=== PATIENT | female | born 1945 | race Caucasian/White ===

== ENCOUNTER 2016-09-13 05:21 | Inpatient (IN) | payer OTHER ==
[2016-08-19 10:47] VITALS: BMI 26.0
--- NOTE | 2016-08-19 11:18 | PAT Medication Instructions ---
Service Date Aug 19, 2016. Current Home Medication List Acetaminophen (Tylenol), 1,000 MG PO PRN B-Complex Vitamins (Vitamin B Complex), 1 TAB PO Q2D Calcium Carbonate-Vitamin D (Calcium + D), 1 TAB PO BID Mujewgeo-Rumxugqkpgx-Uhyfetwoq (Hyaluronic Acid), 33 MG PO QAM Famotidine (Pepcid), 20 MG PO QAM Fexofenadine-Pseudoephedrine (Kareen-D 24 Hour Allergy), 1 TAB PO PRN Fish Oil (Alder-3), 1 CAP PO Q2D Figdxnyhder-Lmwkgoofend-Ivr C- (Glucosamine Chondroitin), 1 TAB PO QAM Lutein (Lutein), 20 MG PO QAM Milk Thistle (Silybum Marianum (Milk Thistle), 500 MG PO QAM Multivitamins/Minerals (Mvi With Minerals), 1 TAB PO Q2D [Magnesium Citrate], 225 MG PO Q2D Medication Instructions For Your Scheduled Surgery - Hold the following medications 7-10 days prior to surgery: Milk Thistle (Silybum Marianum (Milk Thistle), 500 MG PO QAM Fish Oil (Alder-3), 1 CAP PO Q2D Kwtczqzbsim-Kaykfkuzwip-Vpj C- (Glucosamine Chondroitin), 1 TAB PO QAM Lutein (Lutein), 20 MG PO QAM Zmzweajk-Iyqgqndpngn-Bbhvgpxlv (Hyaluronic Acid), 33 MG PO QAM - Hold the following medications the morning of surgery: Multivitamins/Minerals (Mvi With Minerals), 1 TAB PO Q2D Magnesium Citrate 225 MG PO Q2D B-Complex Vitamins (Vitamin B Complex), 1 TAB PO Q2D Calcium Carbonate-Vitamin D (Calcium + D), 1 TAB PO BID Fexofenadine-Pseudoephedrine (Kareen-D 24 Hour Allergy), 1 TAB PO PRN - Take the following medications the morning of surgery with a sip of water: Acetaminophen (Tylenol), 1,000 MG PO PRN (if needed) Famotidine (Pepcid), 20 MG PO QAM - Take the following medications as scheduled the night before surgery: Fexofenadine-Pseudoephedrine (Kareen-D 24 Hour Allergy), 1 TAB PO PRN Acetaminophen (Tylenol), 1,000 MG PO PRN (if needed) If you have any questions please call us at [phone] or [phone] ( Yahaira) or [phone]
[2016-08-19 12:12] LABS: BASO % 0.2 %; BASO ABS # 0.01 K/uL (0-0.2); COMPLETE YES; EOS % 1.8 %; HEMATOCRIT 40.5 % (37-47); IG% 0.2 %; LYMPH % 26.2 %; LYMPH ABS # 1.32 K/uL (1.2-3.4); MEAN CORPUSCULAR HEMOGLOBIN 30.5 pg (25-34); MEAN CORPUSCULAR HGB CONC 33.1 g/dl (32-36); MEAN PLATELET VOLUME 9.7 fL (7.4-10.4); MONO % 7.1 %; NEUT % 64.5 %; PLATELET COUNT 242 K/uL (130-400); WHITE BLOOD COUNT 5.04 K/uL (4.8-10.8)
[2016-08-19 12:20] LABS: PARTIAL THROMBOPLASTIN RATIO 1.1; PROTHROMBIN TIME (PATIENT) 10.6 SECONDS (9.0-12.0)
[2016-08-19 12:29] LABS: URINE APPEARANCE CLEAR (CLEAR); URINE BILIRUBIN NEG (NEG); URINE COLOR DK YELLOW; URINE NITRITE NEG (NEG); UROBILINOGEN NEG (NEG); ZZUR CULT IF INDIC CLEAN CATCH NO
[2016-08-19 12:39] LABS: MANUAL MICROSCOPIC REQUIRED? NO; REVIEW REQ? NO
[2016-08-19 12:42] LABS: BUN/CREATININE RATIO 24.9 (10-20); CALCIUM 9.6 mg/dl (8.5-10.1); CREATININE 0.59 mg/dl (0.60-1.20); POTASSIUM 4.2 mmol/L (3.5-5.1)
--- NOTE | 2016-09-10 10:53 | HISTORY & PHYSICAL EXAMINATION ---
DATE OF ADMISSION: 09/13/2016 CHIEF COMPLAINT: Right knee pain. HISTORY OF PRESENT ILLNESS: Patsy is a 70-year-old female with a 4- to 5-year history of pain in her right knee. The patient rates her pain an 8/10. She has pain with her daily activities. She has limited standing and walking tolerance. Pain is worse with weightbearing. The patient has had injections, Tylenol and home exercise program without relief. She has failed conservative treatment and is scheduled for right knee replacement. PAST MEDICAL HISTORY: Osteoarthritis, GERD. She denies heart disease, diabetes or DVT. PAST SURGICAL HISTORY: Tonsillectomy, D\T\C, appendectomy, cataract extraction. SOCIAL HISTORY: The patient drinks 4 drinks per week. She denies tobacco use. She lives in a single cristi home. She is and retired. FAMILY HISTORY: Negative for DVT. MEDICATIONS: Pepcid 20 mg daily, Kareen 180 mg daily, Lutein 20 mg, hyaluronic acid 33 mg, calcium plus D, glucosamine chondroitin, milk thistle, vitamin B complex, vitamin D3, mag citrate, and a multivitamin. ALLERGIES: ASPIRIN, ALEVE, IBUPROFEN. REVIEW OF SYSTEMS: See HPI. Ten other systems reviewed, all negative. PHYSICAL EXAMINATION: VITAL SIGNS: Height 5 foot 6 inches, weight 164 pounds, BMI is 27. GENERAL: This is a well-developed, well-nourished female who is alert and oriented x3. Mood and affect are appropriate. HEENT: Normocephalic, atraumatic. Mucous membranes are moist and intact. NECK: Supple without lymphadenopathy. HEART: Regular rate and rhythm without murmurs, rubs or gallops. LUNGS: Clear to auscultation without wheezes or rhonchi. ABDOMEN: Soft and nontender. Bowel sounds are equal and active. EXTREMITIES: No ecchymosis, redness or warmth. Thigh and calf are soft and nontender. She has a valgus deformity. Range of motion is from 0-120 degrees with +3 laxity. She is neurovascularly intact with +5/5 strength. X-RAY EXAMINATION: AP and lateral views show joint space narrowing and osteophyte formation. IMPRESSION: Degenerative joint disease, right knee. PLAN: The patient will be admitted for a right total knee arthroplasty. We will consider aspirin for DVT prophylaxis, but due to her allergy may go with Xarelto or Lovenox. She will have [facility] for home physical therapy.
[2016-09-13] VITALS (9 sets, daily range): BP systolic 96–121; BP diastolic 63–92; PULSE 56–87; TEMP 36.4–36.6; O2SAT 94–99; Ht 167.6 cm; Wt 75.1 kg
[~2016-09-13] VITALS: Ht 167.6 cm; Wt 75.1 kg
[~2016-09-13 05:21] MED LIST: ACET-1256 PO; B-COTAB18 PO; CALC600T9 PO; COLL1CAP PO; FAMO20TA11 PO; FEXO1TAB58 PO; GLUCTAB7 PO; LUTE20CA PO; MAGNSOL13 PO; MILK1CAP PO; MULT-513 PO; OMEG10007 PO
[2016-09-13] MEDS ORDERED: ROPIVACAINE 5MG/ML 30 ML 150 MG, BUPIVACAINE/EPINEPHR 0.5% MPF 30 ML, KETOROLAC TROMETH... INFIL SCH ×14 (06:00)
[2016-09-13] MEDS ORDERED: ACETAMINOPHEN 500 MG TAB PO SCH (06:00)
[2016-09-13] MEDS ORDERED: GABAPENTIN 300 MG CAP PO SCH (06:00)
[2016-09-13] MEDS ORDERED: CEFAZOLIN 2000 MG/60 ML D5W 60 ML IV SCH (06:00)
[2016-09-13] MEDS ORDERED: LACTATED RINGER'S 1000ML 1,000 ML IV SCH (06:00)
[2016-09-13] MEDS ORDERED: METOCLOPRAMIDE HCL 10 MG TAB PO SCH (06:00)
[2016-09-13] MEDS ORDERED: CeleBREX 200 MG CAP PO SCH (06:00)
[2016-09-13] MEDS ORDERED: LACTATED RINGER'S 1000ML IV SCH (06:00)
[2016-09-13] MEDS ORDERED: LACTATED RINGER'S 1000ML 500 ML IV ONE (06:00)
[2016-09-13] MEDS ORDERED: POLYMYXIN B SULFATE 100,000 UNITS in NSS 100ML IR SCH (06:00)
[2016-09-13] MEDS ORDERED: DEXAMETHASONE 4 MG TAB PO SCH (06:00)
[2016-09-13] MEDS ORDERED: VANCOMYCIN INJ 400 MG in NSS 100ML IR SCH (06:00)
[2016-09-13] MEDS ORDERED: FAMOTIDINE 20 MG TAB PO SCH (06:00)
[2016-09-13] MEDS ORDERED: OXYCODONE HCL 10 MG TABCR (OXYCONTIN) PO SCH (06:00)
[2016-09-13] MEDS: TRANEXAMIC ACID INJ 1,000 MG in SODIUM CHLORIDE 0.9% 100ML 100 ML IV SCH ×2 (06:14→10:08)
[2016-09-13] MEDS ORDERED: BUPIVACAINE 0.25% 30 ML VIAL ONE (06:24)
[2016-09-13] MEDS ORDERED: BUPIVACAINE 0.5 % 5 MG/1 ML PF 10ML VIAL ONE (06:24)
[2016-09-13] MEDS ORDERED: PROPOFOL IV EMULSION 10 MG/ML 20 ML VIAL IV ONE (06:37)
[2016-09-13] MEDS ORDERED: LIDOCAINE HCL 2% 2 ML VIAL (20MG/ML) ONE (06:37)
[2016-09-13] MEDS ORDERED: MIDAZOLAM HCL 1 MG/ML 2ML VIAL ONE ×2 (06:37→07:55)
[2016-09-13] MEDS ORDERED: FENTANYL CITRATE INJ 50 MCG/1 ML 2 ML VIAL ONE (06:38)
[2016-09-13] MEDS ORDERED: BUPIVACAINE/EPINEPHRINE 0.25% 1:200,000 30 ML VIAL ONE (06:43)
[2016-09-13] MEDS ORDERED: ORTHO JOINT ANESTHETIC ONE ×2 (06:43→07:38)
[2016-09-13] MEDS ORDERED: POVIDONE-IODINE OP SOLN 30 ML BTL ONE (06:44)
[2016-09-13] MEDS ORDERED: BACITRACIN 50000 UNIT VIAL ONE (06:44)
--- NOTE | 2016-09-13 06:49 | History & Physical Bridge Note ---
H&P Re-Evaluation Bridge Note: I have examined the patient, reviewed the History & Physical and in the interval since the performance of the History & Physical I have noted the following changes of clinical significance: No changes noted
[2016-09-13] MEDS ORDERED: LACTATED RINGER'S 1000ML 1,000 ML IV PRN (07:09)
[2016-09-13] MEDS ORDERED: FENTANYL CITRATE INJ 50 MCG/1 ML 2 ML VIAL IV PRN (07:15)
[2016-09-13] MEDS ORDERED: ONDANSETRON INJ 2 MG/ML 2 ML VIAL IV PRN ×2 (07:15→08:15)
[2016-09-13] MEDS ORDERED: EpHEDrine SULFATE INJ 50 MG/ML AMP ONE (07:39)
--- NOTE | 2016-09-13 08:06 | [facility] Post Operative Brief Note ---
Immediate Operative Summary Operative Date Sep 13, 2016. Pre-Operative Diagnosis right knee degenerative joint disease Post-Operative Diagnosis right knee degenerative joint disease Procedure(s) Performed Right Total Knee Arthroplasty Surgeon Dr. Sivakumar Whitlock Commis Chef Surgeon(s) Eren Stinson PA-C Estimated Blood Loss 50ML Findings DJD Specimens A. Right Knee Bone and Tissue Complication(s) None Disposition Recovery Room / PACU
[2016-09-13] MEDS ORDERED: ALUMINUM/MAGNESIUM/SIMETH (MAALOX MAX) 30 ML UDC PO PRN (08:15)
[2016-09-13] MEDS ORDERED: MoRPHine SULFATE 2 MG/ML CARP IV PRN (08:15)
[2016-09-13] MEDS ORDERED: MAGNESIUM HYDROXIDE SUSP 30 ML UDC PO PRN (08:15)
[2016-09-13] MEDS ORDERED: BISACODYL 10 MG SUPP PR PRN (08:15)
[2016-09-13] MEDS ORDERED: SOD PHOSPHATE/SOD BIPHOSPHATE ENEMA 132 ML BTL PR PRN (08:15)
[2016-09-13] MEDS ORDERED: ZOLPIDEM TARTRATE 5 MG TAB PO PRN (08:15)
[2016-09-13] MEDS ORDERED: DiphenhydrAMINE HCL 50 MG/ML VIAL IV PRN (08:15)
[2016-09-13] MEDS ORDERED: METOCLOPRAMIDE HCL INJ 5 MG/ML 2 ML VIAL IV PRN (08:15)
--- NOTE | 2016-09-13 09:10 | DIAGNOSTIC IMAGING REPORT ---
RIGHT KNEE 1 OR 2 VIEWS ROUTINE CLINICAL HISTORY: Postop knee arthroplasty COMPARISON: None. DISCUSSION: There are postsurgical changes of a total right knee arthroplasty and patellar resurfacing. Overlying surgical drains are evident. The femoral and tibial components appear well seated. There is air within soft tissues consistent with recent surgery. IMPRESSION: Postsurgical changes of a total right knee arthroplasty. Electronically signed by: Herb Huff M.D. 09/13/2016 9:08 AM Dictated Date/Time: 09/13/2016 9:07 AM
--- NOTE | 2016-09-13 09:21 | Anesthesiology Progress Note ---
Anesthesia Post Op Note Date & Time Sep 13, 2016 at 09:20 Vital Signs Pain Intensity: 0 Vital Signs Past 12 Hours Date Time Temp Pulse Resp B/P Pulse Ox O2 Delivery O2 Flow Rate FiO2 09/13/16 09:00 61 16 95/73 100 Mask 10 09/13/16 08:50 60 16 104/61 99 Mask 10 09/13/16 08:43 36.1 74 16 100/59 99 Mask 10 09/13/16 05:43 36.5 74 18 121/92 97 Room Air Notes Mental Status: alert / awake / arousable, participated in evaluation Pt Amnestic to Procedure: No (recall as expected) Nausea / Vomiting: adequately controlled Pain: adequately controlled Airway Patency, RR, SpO2: stable & adequate BP & HR: stable & adequate Hydration State: stable & adequate Neuraxial Anesthesia: was administered, sensory block is resolving Anesthetic Complications: no major complications apparent Pt doing well.
[2016-09-13] MEDS: [UNRECOGNIZED DRUG - REMARK] SCH (10:08)
[2016-09-13] MEDS: MULTIVITAMIN TAB PO SCH (11:45)
[2016-09-13] MEDS: D5W AND 1/2NSS + 20MEQ KCL 1,000 ML IV SCH ×2 (11:58→22:17)
[2016-09-13] MEDS: OXYCODONE HCL IR 5 MG TAB (IMMEDIATE RELEASE) PO PRN (12:57)
[2016-09-13] MEDS: CEFAZOLIN IV 1,000 MG in DEXTROSE 5% 50ML 50 ML IV SCH ×2 (14:03→22:17)
[2016-09-13] MEDS: ACETAMINOPHEN 500 MG TAB PO SCH ×2 (14:03→22:18)
--- NOTE | 2016-09-13 15:16 | OPERATIVE REPORT ---
DATE OF OPERATION: 09/13/2016 PREOPERATIVE DIAGNOSIS: Degenerative arthritis, right knee. POSTOPERATIVE DIAGNOSIS: Same. PROCEDURE: Right total knee patient matched implant. SURGEON: Dr. Sivakumar Whitlock. FUR SEWER: ROBY Johnson. ANESTHESIA: Spinal. ESTIMATED BLOOD LOSS: 50 mL. REPLACEMENT FLUIDS: 1500 mL crystalloid. DRAINS: Hemovac x2. CULTURES: None. COMPLICATIONS: None. COMPONENTS USED: Bhardwaj and NephPoplar Level Player's Plazaadrian Knee System: Femur size 5, tibia size 3 x 12, and patella size 32. NOTE: Eren Stinson was present and assisted throughout due to the complicated nature of this case. He helped with preparation and setup, first assisted throughout and personally closed the capsule, subcutaneous and skin layers and applied the postoperative dressing. DESCRIPTION OF PROCEDURE: Following satisfactory spinal, the patient was supine. A tourniquet was placed, but not inflated. The lower extremity was prepared with ChloraPrep and draped sterilely. Following a surgical timeout, a median parapatellar arthrotomy was performed. The knee showed grade 4 changes, especially in the lateral and patellofemoral compartments. The cruciate ligaments were excised. The patient matched femoral block was applied. Femoral distal rotation and resection were set and completed. The 4-in-1 block was used to finish preparation of the femur. The patient matched tibial block was applied. Tibial resection was completed. Patella was freehand cut. Soft tissue balancing was completed and a trial reduction showed good tensioning and stability on the collateral ligaments, stable range of motion, and the patella tracked well. The trial components were removed. The capsule was prepared with the orthopedic cocktail and after irrigation, the components were cemented using Simplex G cement. A Betadine soak was performed. When the cement had hardened, the Betadine was irrigated. Two drains were placed. The arthrotomy was closed with a running suture of 0 V-Loc, subcutaneous tissues with 2-0 Vicryl and the skin with a running subcuticular stitch of 3-0 V-Loc. Dermabond and a dry dressing were applied. The patient was returned to her bed in stable condition. I attest to the content of the Intraoperative Record and any orders documented therein. Any exceptio ns are noted below.
[2016-09-13] MEDS: TRAMADOL HCL 50 MG TAB PO PRN (15:44)
[2016-09-13] MEDS ORDERED: WARFARIN SOD 5 MG TAB PO ONE (16:00)
[2016-09-13] MEDS ORDERED: SENNA 8.6 MG TAB PO SCH (21:00)
[2016-09-13] MEDS: OXYCODONE HCL 10 MG TABCR (OXYCONTIN) PO SCH (21:10)
[2016-09-14] MEDS: OXYCODONE HCL IR 5 MG TAB (IMMEDIATE RELEASE) PO PRN ×3 (00:25→15:38)
[2016-09-14 03:29] VITALS: BP 101/62; PULSE 58; TEMP 36.5; O2SAT 95
[2016-09-14] MEDS: ACETAMINOPHEN 500 MG TAB PO SCH ×2 (05:42→13:34)
[2016-09-14 06:21] LABS: HEMATOCRIT 32.8 % (37-47); MEAN CELL VOLUME 93.2 fL (80-100); MEAN CORPUSCULAR HEMOGLOBIN 31.5 pg (25-34); MEAN CORPUSCULAR HGB CONC 33.8 g/dl (32-36); MEAN PLATELET VOLUME 9.5 fL (7.4-10.4); PLATELET COUNT 217 K/uL (130-400); RED BLOOD COUNT 3.52 M/uL (4.2-5.4); WHITE BLOOD COUNT 11.24 K/uL (4.8-10.8)
[2016-09-14 06:47] LABS: PROTHROMBIN TIME (PATIENT) 10.6 SECONDS (9.0-12.0)
[2016-09-14 07:01] LABS: BUN/CREATININE RATIO 14.2 (10-20); CALCIUM 8.4 mg/dl (8.5-10.1); CREATININE 0.66 mg/dl (0.60-1.20); POTASSIUM 4.5 mmol/L (3.5-5.1)
[2016-09-14 07:29] VITALS: BP 117/76; PULSE 65; TEMP 36.4; O2SAT 95
[2016-09-14] MEDS: D5W AND 1/2NSS + 20MEQ KCL 1,000 ML IV SCH (08:00)
[2016-09-14] MEDS: MULTIVITAMIN TAB PO SCH (08:26)
[2016-09-14] MEDS: OXYCODONE HCL 10 MG TABCR (OXYCONTIN) PO SCH (08:27)
--- NOTE | 2016-09-14 08:47 | Anesthesiology Progress Note ---
Anesthesia Post Op Note Date & Time Sep 14, 2016 at 08:46 Vital Signs Pain Intensity: 2.5 Vital Signs Past 12 Hours Date Time Temp Pulse Resp B/P Pulse Ox O2 Delivery O2 Flow Rate FiO2 09/14/16 07:29 36.4 65 16 117/76 95 Room Air 09/14/16 07:20 Room Air 09/14/16 03:29 36.5 58 16 101/62 95 Room Air 09/14/16 00:15 Room Air 09/13/16 22:48 36.4 56 16 109/66 96 Room Air Notes Mental Status: alert / awake / arousable, participated in evaluation Pt Amnestic to Procedure: Yes Nausea / Vomiting: adequately controlled Pain: adequately controlled Airway Patency, RR, SpO2: stable & adequate BP & HR: stable & adequate Hydration State: stable & adequate Neuraxial Anesthesia: sensory block resolved Anesthetic Complications: no major complications apparent
[2016-09-14] MEDS ORDERED: PANTOprazole SOD 40 MG TAB PO SCH (09:00)
--- NOTE | 2016-09-14 09:46 | Orthopedic Progress Note ---
Orthopedic Progress Note Date of Service Sep 14, 2016. Subjective Post OP Day: 1 Reports: feeling well, Denies: SOB, calf pain, chest pain, light headedness, nausea / vomiting Objective calves soft nontender, N/V intact, dressing C/D/I, A&O x3, toes mobile, hemovac drainage (225/75CC PER SHIFT) Date Time Temp Pulse Resp B/P Pulse Ox O2 Delivery O2 Flow Rate FiO2 09/14/16 07:29 36.4 65 16 117/76 95 Room Air 09/14/16 07:20 Room Air 09/14/16 03:29 36.5 58 16 101/62 95 Room Air 09/14/16 00:15 Room Air 09/13/16 22:48 36.4 56 16 109/66 96 Room Air 09/13/16 18:47 36.6 64 16 107/65 94 Room Air 09/13/16 15:25 Room Air 09/13/16 15:15 36.6 65 16 103/66 95 Room Air 09/13/16 12:45 36.4 70 18 111/77 99 Nasal Cannula 2.0 09/13/16 11:45 87 19 96/63 98 Nasal Cannula 2.0 09/13/16 10:45 36.4 62 16 105/71 98 2.0 09/13/16 10:14 36.4 70 16 113/79 98 2.0 Laboratory Results 24 Hours: Test 09/14/16 05:53 Hematocrit 32.8 % Hemoglobin 11.1 g/dL Prothromb Time International Ratio 1.0 Prothrombin Time 10.6 SECONDS Assessment & Plan Assessment: POD#1 SP RIGHT TKA Inhouse Planning Pain Management: Celebrex, Oxycontin, PO Tylenol, Oxy IR DVT Prophylaxis: TEDs, SCDs, Coumadin Discharge Planning Discharge Planning: home with home health (POSSIBLE DC LATER TODAY WITH [facility])
[2016-09-14] MEDS: TRAMADOL HCL 50 MG TAB PO PRN (10:47)
[2016-09-14 10:52] VITALS: BP 106/71; PULSE 66; TEMP 36.6; O2SAT 96
--- NOTE | 2016-09-14 12:03 | Discharge Instructions ---
Discharge Instructions Date of Service Sep 14, 2016. Admission Reason for Admission: Right Knee Degenerative Arthritis Discharge Discharge Diagnosis / Problem: sp right TKA Discharge Goals Goal(s): Decrease discomfort, Improve function, Increase independence Activity Recommendations Activity Limitations: per Instructions/Follow-up section . Instructions / Follow-Up Instructions / Follow-Up ACTIVITY RECOMMENDATIONS: SELF CARE INSTRUCTIONS AFTER TOTAL KNEE REPLACEMENT A. You may need to continue a physical therapy program after discharge from the hospital. There are several options available to you. Your doctor will assist you in selecting the best one for you. 1. An out-patient facility 2 to 3 times a week for therapy or home therapy. 2. Continue working on all exercises taught to you in the hospital. Your goals should be to increase bending of your knee to 90 degrees and beyond and to fully straighten your knee. B. You may progress at your own pace from walking with a walker or crutches to a cane; then to no assistive devices. C. Make walking a part of your daily routine. Be up as much as comfortable with rest periods throughout the day. Rest with leg elevation is very important. Use the ice wrap frequently for the first 3-4 weeks. D. There are no restrictions on activities. You may ride in a car, shop, participate in imaging engineer and all social activities. E. Wear the long elastic stockings (RADHA hose) 20 hours a day for 2 weeks after surgery. They can be removed several times a day for laundering and for a bath. F. You may shower, no tub baths until cleared by your doctor. SPECIAL CARE INSTRUCTIONS: VERY IMPORTANT TO READ AND REVIEW A. There are a few signs you need to watch for after you are home. Call [facility] if you notice any of the followin. Increased severe knee pain. Some pain is expected especially when you exercise. 2. Increased swelling in your leg or knee; pain or swelling of the calf muscle in either lower leg. 3. Any fluid drainage from the incision. 4. Shortness of breath or chest pain. B. Please call [facility] [place] at if you have any concerns or questions about your operation or recovery. The doctor or his nurse will return your call promptly. C. You must take antibiotics before dental work, bladder, bowel or other surgery. Your doctor will provide you with a permanent care to carry describing this precaution. IMPORTANT: * HIGH RISK PATIENTS MAY BE PRESCRIBED A STRONGER BLOOD THINNER. THIS WILL BE PROVIDED AT DISCHARGE. COUMADIN- WILL NEED WEEKLY BLOOD DRAWS * CALL IF INCREASED PAIN, REDNESS, DRAINAGE OR FEVER GREATER THAT 101. * WEAR RADHA HOSE 20 HOURS PER DAY FOR 2 WEEKS. DERMABOND Prineo- This is a mesh tape dressing that is covered with glue. It should remain in place until the incision is properly healed, usually 10-14 days. This dressing is designed to naturally slough off. You may trim the excess mesh tape as it peels off. Incision may be briefly wet in a shower. Dry immediately by blotting with a clean, dry towel. Do not bath or swim until instructed by your doctor. Do not scratch, rub, or pick at the dressing. Do not apply any topical ointments or lotions until dressing is completely removed and/or instructed by your doctor. There may be a small piece of suture material at one end of your incision. Do not pull or trim this. If it is bothersome or catching on clothing, you may cover it with a band-aid. FOLLOW UP VISIT: If appointment is not already scheduled: Please call [facility] to make a follow-up appointment for 2 weeks after your surgery at . Current Hospital Diet Patient's current hospital diet: Regular Diet Discharge Diet Recommended Diet: Regular Diet Procedures Procedures Performed: Right Total Knee Arthroplasty Pending Studies Studies pending at discharge: no Medical Emergencies . Who to Call and When: Medical Emergencies: If at any time you feel your situation is an emergency, please call 911 immediately. . Non-Emergent Contact Non-Emergency issues call your: Surgeon . "Provider Documentation" section prepared by Narcisa Fitzpatrick. . VTE Core Measure Inpt VTE Proph given/why not?: Warfarin (Coumadin), Jovana Rubalcava, SCD's [place] Drug Monitoring Program Search Results: patient reviewed within database, no issues identified
[2016-09-14] MEDS ORDERED: WARFARIN SOD 5 MG TAB PO ONE (16:00)
[2016-09-14 16:06] VITALS: BP 118/73; PULSE 57; TEMP 36.6; O2SAT 98
[2016-09-14] MEDS ORDERED: WARF2TAB PO (16:22)
[2016-09-14] MEDS ORDERED: SNK PO (16:22)
[2016-09-14] MEDS ORDERED: ACET-1256 PO (16:22)
[2016-09-14] MEDS ORDERED: RXC5 PO (16:22)
[2016-09-14 16:59] VITALS: BP 118/73; PULSE 57; TEMP 36.6; O2SAT 98
--- NOTE | 2016-09-15 14:16 | DISCHARGE SUMMARY ---
DISCHARGE DIAGNOSIS: Degenerative joint disease, right knee. SECONDARY DIAGNOSES: Osteoarthritis, gastroesophageal reflux disease. CONSULTS: None. COMPLICATIONS: None. PROCEDURES: Right total knee arthroplasty performed by Dr. Fernando Whitlock on 09/13/2016. BRIEF HISTORY: As dictated in history and physical. HOSPITAL SUMMARY: The patient was admitted on the above date and had the above-noted surgery performed which he tolerated well. On the first postoperative day, she was feeling well and had no complaints. Calves were soft and nontender, neurovascularly intact. Dressings clean, dry and intact. Toes were mobile. Vital signs were stable. She is afebrile. Hemoglobin was 11.1 and she was started on physical therapy protocol and continued on DVT prophylaxis and pain management. Throughout her day, she continued to progress well with her physical therapy, pain was controlled and she was continued to remain stable and it was felt he could be discharged to home with home health services with [facility]. For further review, please see chart. LAB AND X-RAY DATA: As per chart. DISCHARGE INSTRUCTIONS: The patient was discharged to home in satisfactory condition on 09/14/2016. DIET: Regular. ACTIVITY: Follow TK instruction sheets and special care instructions as noted. Follow up with Dr. Fernando Whitlock in 2 weeks. The patient to call for appointment if one has not been made for you. DISCHARGE MEDICATIONS: Oxycodone 5-10 mg p.o. q. 4 hours p.r.n., senna 17.2 mg p.o. at bedtime, warfarin 2 mg p.o. daily, continue acetaminophen 1000 mg p.o. p.r.n., vitamin B complex 1 tab p.o. every 2 days, calcium plus D 1 tab p.o. b.i.d., hyaluronic acid 33 mg p.o. q.a.m., famotidine 20 mg p.o. q.a.m., Kareen-D 1 tab p.o. p.r.n., fish oil 1 cap p.o. every 2 days, glucosamine chondroitin 1 tab p.o. q.a.m., Lutein 20 mg p.o. q.a.m., milk thistle 500 mg p.o. q.a.m. and multivitamin with minerals 1 tab p.o. every 2 days, magnesium citrate 225 mg p.o. q. 2 days.
== END 2016-09-14 18:25 | disposition home health service (06) | DRG 470 ==
LOC: ENRESERVDT → ENRESERVTM → C.ACU 05:21 → C.3E 06:30
PROVIDERS: ADMIT Orthopaedic Surgery; ATTEND Orthopaedic Surgery
PROC: 0SRC0J9 Replacement of Right Knee Joint with Synthetic Substitute, Cemented, Open Approach (ICD-10-PCS; principal; 2016-09-13 07:00)
DX: M17.11 Unilateral primary osteoarthritis, right knee (principal); K21.9 Gastro-esophageal reflux disease without esophagitis

== ENCOUNTER → 2016-09-16 | Outpatient (CLI) | payer OTHER ==
[~2016-09-16] MED LIST changes: +RXC5 PO; +SNK PO; +WARF2TAB PO
[2016-09-16 10:43] LABS: INR 1.4 (0.9-1.1); PROTHROMBIN TIME (PATIENT) 15.3 SECONDS (9.0-12.0)
--- NOTE | 2016-09-24 10:34 | CODING QUERY NO DIAGNOSIS ---
Valid Physician Order Needed A valid physician order must be submitted in order to properly bill for the service(s) provided, including date of service(s), valid diagnosis, and physician signature. If these tests are done on a recurring basis the original physican order must be submitted in order to code and bill for the service(s) provided. Please fax us the original, signed physician order so that we may expedite billing to [phone] DOS: 09/16/16 * PT/INR Thank you Celine Carmona [facility]
== END | disposition home or self-care (01) ==
LOC: C.LABSPEC 10:23
PROVIDERS: ATTEND Orthopaedic Surgery
DX: Z79.01 Long term (current) use of anticoagulants (principal)

== ENCOUNTER → 2016-09-21 | Outpatient (CLI) | payer OTHER ==
[2016-09-21 11:10] LABS: INR 1.4 (0.9-1.1); PROTHROMBIN TIME (PATIENT) 14.7 SECONDS (9.0-12.0)
--- NOTE | 2016-09-23 07:56 | CODING QUERY NO DIAGNOSIS ---
Valid Physician Order Needed A valid physician order must be submitted in order to properly bill for the service(s) provided, including date of service(s), valid diagnosis, and physician signature. If these tests are done on a recurring basis the original physician order must be submitted in order to code and bill for the service(s) provided. Please fax us the original, signed physician order so that we may expedite billing to [phone] DOS 09/21/16 * PTINR Thank you Augustina Mcelroy [facility]
== END | disposition home or self-care (01) ==
LOC: C.LABSPEC 10:31
PROVIDERS: ATTEND Orthopaedic Surgery
DX: Z51.81 Encounter for therapeutic drug level monitoring (principal); Z79.01 Long term (current) use of anticoagulants; Z47.1 Aftercare following joint replacement surgery; M19.90 Unspecified osteoarthritis, unspecified site; K21.9 Gastro-esophageal reflux disease without esophagitis

== ENCOUNTER → 2016-09-28 | Outpatient (CLI) | payer OTHER ==
[2016-09-28 11:19] LABS: INR 1.2 (0.9-1.1); PROTHROMBIN TIME (PATIENT) 12.7 SECONDS (9.0-12.0)
== END | disposition home or self-care (01) ==
LOC: C.LABSPEC 11:03
PROVIDERS: ATTEND Orthopaedic Surgery
DX: Z79.01 Long term (current) use of anticoagulants (principal)

== ENCOUNTER → 2016-10-04 | Outpatient (CLI) | payer OTHER ==
[2016-10-04 12:42] LABS: INR 1.4 (0.9-1.1); PROTHROMBIN TIME (PATIENT) 14.7 SECONDS (9.0-12.0)
== END | disposition home or self-care (01) ==
LOC: C.LABPVFM 09:23
PROVIDERS: ATTEND Orthopaedic Surgery
DX: Z47.1 Aftercare following joint replacement surgery (principal)

== ENCOUNTER → 2016-10-11 | Outpatient (CLI) | payer OTHER ==
[2016-10-11 12:33] LABS: INR 1.6 (0.9-1.1); PROTHROMBIN TIME (PATIENT) 17.9 SECONDS (9.0-12.0)
== END | disposition home or self-care (01) ==
LOC: C.LABPVFM 08:38
PROVIDERS: ATTEND Orthopaedic Surgery
DX: Z51.81 Encounter for therapeutic drug level monitoring (principal); Z79.01 Long term (current) use of anticoagulants

== ENCOUNTER → 2017-01-25 | Outpatient (CLI) | payer OTHER | END | disposition home or self-care (01) | LOC: C.MAMM 13:51 | PROVIDERS: ATTEND Family Medicine | DX: M81.0 Age-related osteoporosis without current pathological fracture (principal); M85.851 Other specified disorders of bone density and structure, right thigh; M85.852 Other specified disorders of bone density and structure, left thigh ==

== ENCOUNTER → 2017-04-12 | Outpatient (CLI) | payer OTHER ==
[2017-04-12 10:40] LABS: CALCIUM URINE 6.6 mg/dl
[2017-04-12 12:27] LABS: CALCIUM 9.3 mg/dl (8.5-10.1); CREATININE 0.82 mg/dl (0.60-1.20)
[2017-04-13 14:50] LABS: ALBUMIN 4.2 G/DL (3.8-4.8)
== END | disposition home or self-care (01) ==
LOC: C.LAB1850 09:17
PROVIDERS: ATTEND Internal Medicine Rheumatology
DX: M80.00XA Age-related osteoporosis with current pathological fracture, unspecified site, initial encounter for fracture (principal)

== ENCOUNTER 2017-06-08 20:37 | Emergency (ER) | payer OTHER ==
[~2017-06-08] VITALS: Ht 167.6 cm; Wt 76.0 kg
[2017-06-08 20:40] VITALS: TEMP 36.7; Ht 167.6 cm; Wt 76.0 kg
[2017-06-08] MEDS ORDERED: SODIUM CHLORIDE 0.9% 500ML 500 ML IV STA (20:57)
[2017-06-08] MEDS ORDERED: LORAZEPAM 0.5 MG TAB PO STA (20:57)
[2017-06-08 21:02] VITALS: O2SAT 96
[2017-06-08 21:07] LABS: BASO % 0.2 %; BASO ABS # 0.01 K/uL (0-0.2); EOS % 4.2 %; HEMATOCRIT 38.6 % (37-47); HEMOGLOBIN 13.1 g/dL (12.0-16.0); IG# 0.01 K/uL (0.00-0.02); LYMPH % 42.3 %; LYMPH ABS # 1.99 K/uL (1.2-3.4); MEAN CELL VOLUME 94.4 fL (80-100); MEAN CORPUSCULAR HGB CONC 33.9 g/dl (32-36); MEAN PLATELET VOLUME 9.8 fL (7.4-10.4); MONO % 10.8 %; MONO ABS # 0.51 K/uL (0.11-0.59); NEUT % 42.3 %; NEUT ABS # 1.99 K/uL (1.4-6.5); PLATELET COUNT 226 K/uL (130-400); RED CELL DISTRIBUTION WIDTH CV 13.7 % (11.5-14.5); RED CELL DISTRIBUTION WIDTH SD 46.9 fL (36.4-46.3); WHITE BLOOD COUNT 4.71 K/uL (4.8-10.8)
--- NOTE | 2017-06-08 21:10 | DIAGNOSTIC IMAGING REPORT ---
SINGLE VIEW CHEST CLINICAL HISTORY: Atypical chest pain. FINDINGS: An AP, portable, upright chest radiograph is correlated with chest CT dated 02/04/2016. The examination is degraded by portable technique and patient rotation. The heart is mildly enlarged and there is atherosclerotic calcification of the thoracic aorta. The pulmonary vasculature is noncongested. The lungs and pleural spaces are clear. No pneumothorax is seen. The skeletal structures are osteopenic. The bony thorax is grossly intact. IMPRESSION: No acute cardiopulmonary abnormality. Electronically signed by: Robi Gan M.D. 06/08/2017 9:09 PM Dictated Date/Time: 06/08/2017 9:08 PM
--- NOTE | 2017-06-08 21:19 | EMERGENCY ROOM VISIT NOTE ---
History Report prepared by Catherine: George Dykes Under the Supervision of: Dr. Zak Storey M.D. First contact with patient: 20:44 Chief Complaint: CARDIAC ASSESSMENT Stated Complaint: CHEST PAIN, SOB, HEART POUNDS History of Present Illness The patient is a 71 year old white female with no significant past medical history who presents to the Emergency Room with complaints of intermittent chest pains and palpitations that began one day prior to arrival. The patient describes her chest pain as a "tightness." She notes that her pain began yesterday, and became more frequent and severe today. The patient also complains of become diaphoretic today while laying down, and a dry cough. She claims that her pain usually presents while sedentary/at rest and does not onset with activity. She denies any personal cardiac or respiratory medical history, but notes significant cardiac family history. Review of EMR shows that the patient takes Coumadin. She notes that she does not take Coumadin anymore, as it was a temporary post-op medication. 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 A total of ten systems were reviewed and were otherwise negative. Past Medical & Surgical Surgical Problems: (1) Post-operative state No pertinent medical history. Family History Heart disease Social History Smoking Status: Former Smoker Drug Use: none Marital Status: Housing Status: lives with significant other Current/Historical Medications Scheduled Acetaminophen (Tylenol), 1,000 MG PO PRN B-Complex Vitamins (Vitamin B Complex), 1 TAB PO Q2D Calcium Carbonate-Vitamin D (Calcium), 1 TAB PO BID Nzzfsvyv-Kvcqlplanuo-Zommowjpm (Hyaluronic Acid), 33 MG PO QAM Ergocalciferol (Vitamin D 86069 Unit), 50,000 UNIT PO WK Fexofenadine-Pseudoephedrine (Kareen-D 24 Hour Allergy), 1 TAB PO PRN Fish Oil ([place]-3), 1 CAP PO Q2D Jujnlgxdmbi-Xivdfwyjniv-Jhr C- (Glucosamine Chondroitin), 1 TAB PO QAM Lutein (Lutein), 20 MG PO QAM Magnesium Citrate (mg Suppleme (Magnesium Citrate), 200 MG PO 3XWK Milk Thistle (Silybum Marianum (Milk Thistle), 500 MG PO QAM Multivitamins/Minerals (Mvi With Minerals), 1 TAB PO Q2D [Magnesium Citrate], 225 MG PO Q2D Allergies Coded Allergies: Aspirin (Verified Allergy, Unknown, HIVES, 09/13/16) Ibuprofen (Verified Allergy, Unknown, HIVES, 09/13/16) Naproxen (Verified Allergy, Unknown, HIVES, 09/13/16) Physical Exam Vital Signs Date Time Temp Pulse Resp B/P (MAP) Pulse Ox O2 Delivery O2 Flow Rate FiO2 06/08/17 22:29 75 20 156/82 98 Room Air 06/08/17 21:06 66 06/08/17 21:02 96 Room Air 06/08/17 20:54 97 Room Air 06/08/17 20:40 36.7 89 20 140/95 98 Room Air Physical Exam GENERAL: Awake, alert, well-appearing, NAD HENT: Normocephalic, atraumatic. EYES: Normal conjunctiva. Sclera non-icteric. NECK: Supple. No nuchal rigidity. FROM. RESPIRATORY: CTAB, no rhonchi, wheezing, crackles CARDIAC: RRR, no MRG ABDOMEN: Soft, NTND, BS+ MSK: No chest wall TTP, no LE edema NEURO: GCS 15, CN 2-12 intact, moves all 4s on command SKIN: No rash or jaundice noted. Medical Decision & Procedures ER Provider Diagnostic Interpretation: Radiology results as stated below per my review and radiologist interpretation: SINGLE VIEW CHEST CLINICAL HISTORY: Atypical chest pain. FINDINGS: An AP, portable, upright chest radiograph is correlated with chest CT dated 02/04/2016. The examination is degraded by portable technique and patient rotation. The heart is mildly enlarged and there is atherosclerotic calcification of the thoracic aorta. The pulmonary vasculature is noncongested. The lungs and pleural spaces are clear. No pneumothorax is seen. The skeletal structures are osteopenic. The bony thorax is grossly intact. IMPRESSION: No acute cardiopulmonary abnormality. Electronically signed by: Robi Gan M.D. 06/08/2017 9:09 PM Dictated Date/Time: 06/08/2017 9:08 PM Laboratory Results 06/08/17 21:00 Red Blood Count 4.09, Mean Corpuscular Volume 94.4, Mean Corpuscular Hemoglobin 32.0, Mean Corpuscular Hemoglobin Concent 33.9, Mean Platelet Volume 9.8, Neutrophils (%) (Auto) 42.3, Lymphocytes (%) (Auto) 42.3, Monocytes (%) (Auto) 10.8, Eosinophils (%) (Auto) 4.2, Basophils (%) (Auto) 0.2, Neutrophils # (Auto ) 1.99, Lymphocytes # (Auto) 1.99, Monocytes # (Auto) 0.51, Eosinophils # (Auto ) 0.20, Basophils # (Auto) 0.01 06/08/17 21:00 Test 06/08/17 21:00 White Blood Count 4.71 K/uL (4.8-10.8) Red Blood Count 4.09 M/uL (4.2-5.4) Hemoglobin 13.1 g/dL (12.0-16.0) Hematocrit 38.6 % (37-47) Mean Corpuscular Volume 94.4 fL (80-100) Mean Corpuscular Hemoglobin 32.0 pg (25-34) Mean Corpuscular Hemoglobin Concent 33.9 g/dl (32-36) Platelet Count 226 K/uL (130-400) Mean Platelet Volume 9.8 fL (7.4-10.4) Neutrophils (%) (Auto) 42.3 % Lymphocytes (%) (Auto) 42.3 % Monocytes (%) (Auto) 10.8 % Eosinophils (%) (Auto) 4.2 % Basophils (%) (Auto) 0.2 % Neutrophils # (Auto) 1.99 K/uL (1.4-6.5) Lymphocytes # (Auto) 1.99 K/uL (1.2-3.4) Monocytes # (Auto) 0.51 K/uL (0.11-0.59) Eosinophils # (Auto) 0.20 K/uL (0-0.5) Basophils # (Auto) 0.01 K/uL (0-0.2) RDW Standard Deviation 46.9 fL (36.4-46.3) RDW Coefficient of Variation 13.7 % (11.5-14.5) Immature Granulocyte % (Auto) 0.2 % Immature Granulocyte # (Auto) 0.01 K/uL (0.00-0.02) Prothrombin Time 10.1 SECONDS (9.0-12.0) Prothromb Time International Ratio 1.0 (0.9-1.1) Activated Partial Thromboplast Time 26.8 SECONDS (21.0-31.0) Partial Thromboplastin Ratio 1.0 Anion Gap 10.0 mmol/L (3-11) Est Creatinine Clear Calc Drug Dose 76.7 ml/min Estimated GFR () 100.6 Estimated GFR (Non- 86.8 BUN/Creatinine Ratio 23.2 (10-20) Calcium Level 9.2 mg/dl (8.5-10.1) Phosphorus Level 3.3 mg/dl (2.5-4.9) Magnesium Level 2.0 mg/dl (1.8-2.4) Total Bilirubin 0.2 mg/dl (0.2-1) Direct Bilirubin < 0.1 mg/dl (0-0.2) Aspartate Amino Transf (AST/SGOT) 30 U/L (15-37) Alanine Aminotransferase (ALT/SGPT) 24 U/L (12-78) Alkaline Phosphatase 64 U/L (45-117) Troponin I < 0.015 ng/ml (0-0.045) Total Protein 7.7 gm/dl (6.4-8.2) Albumin 3.8 gm/dl (3.4-5.0) Lipase 325 U/L (73-393) Thyroid Stimulating Hormone (TSH) 1.970 uIu/ml (0.300-4.500) Laboratory results reviewed by me Medications Administered Medications (Trade) Dose Ordered Sig/[place] Route Start Time Stop Time Status Last Admin Dose Admin Lorazepam (Ativan Tab) 0.5 mg NOW STAT PO 06/08/17 20:57 06/08/17 20:58 DC 06/08/17 21:09 0.5 MG Sodium Chloride 500 ml @ 500 mls/hr Q1H STAT IV 06/08/17 20:57 06/08/17 21:56 DC 06/08/17 21:10 500 MLS/HR ECG Indication: chest pain Rate (beats per minute): 75 Rhythm: normal sinus Findings: other (Normal intervals, normal axis. T-wave flattening in lead III, not in continguous leads. No STS or TWI otherwise. ) Change: Patient's electrocardiogram interpreted by me. ED Course 2050: The patient was evaluated in room B2. A complete history and physical exam was performed. 2221: I reevaluated the patient. She reassured that the chest pain has not been exertional. We discussed an inpatient stay, but she feels good to go home. I discussed results and discharge instructions: She verbalized understanding and agreement. The patient is ready for discharge. Medical Decision The patient is a 71 year old white female with no significant past medical history who presents to the Emergency Room with complaints of intermittent chest "tightness" and palpitations that began one day prior to arrival. Differential diagnosis; cardiac ischemia, aortic dissection, pulmonary embolism , pneumonia, pneumothorax, musculoskeletal, infections, pericarditis, myocarditis, esophageal rupture, gastrointestinal, as well as others were entertained. Patient was seen and evaluated at the bedside. Patient had complained of some mild chest tightness and palpitations and a been ongoing worse over the last day when ongoing for approximately 1 week. Patient denies any recent stress. Patient does try to decrease her caffeine intake. Patient states that her father did have a history of cardiac disease. Unsure what age. Patient denies any prior history of hypertension, diabetes, hyperlipidemia. Patient denies any shortness of breath, history of DVT or PE, infectious symptoms. Patient also denies any exertional symptoms. She states that walking does not make her chest pain any worse and does not cause any shortness of breath, TAN. She denies any lower extremity swelling, orthopnea. Patient denies any prior history of anxiety however the patient was amenable to trying some Ativan. Patient did have blood work, EKG, troponin, chest x-ray completed. Patient troponin negative. Patient did have some T-wave flattening in lead 3 but no other TW I or STS changes. Patient did not show any concerns and contiguous leads. The patient does have a heart score less than 4. Given that she is an older female I did discuss that sometimes when it can have atypical symptoms. However, the patient denies any exertional symptoms and the patient states that she only notices it when she is at rest. Furthermore, she states that the Ativan did improve her preoccupation. There may be some sort of anxiety component. I did notice that on the monitor did look like she had some PACs which were not noted on her EKG. I did discuss that this can cause you to feel those palpitations. Patient did elect with shared decision making to go home with strict return and follow-up instructions. Patient was told call her PCP tomorrow to try and follow-up by Tuesday for further follow-up evaluation, and treatment. Also stated the patient should discuss a baby aspirin or other antiplatelet in the future for good heart health. Patient was deemed suitable for outpatient follow-up and treatment at this time. Patient was given strict follow-up, discharge, and return precautions. All questions were answered. Patient was deemed suitable for outpatient follow-up at this time. Patient agreed with the plan of care and was safely discharged home. The chart was completed utilizing [employer] Speech voice recognition software. Grammatical errors, random word insertions, pronoun errors, and incomplete sentences are an occasional consequence of this system due to software limitations, ambient noise, and hardware issues. Any formal questions or concerns about the content, text, or information contained within the body of this dictation should be directly addressed to the physician for clarification. Impression Primary Impression: PAC (premature atrial contraction) Additional Impressions: Sinus arrhythmia Palpitations Scribe Attestation The scribe's documentation has been prepared under my direction and personally reviewed by me in its entirety. I confirm that the note above accurately reflects all work, treatment, procedures, and medical decision making performed by me. Departure Information Dispostion Home / Self-Care Referrals Aby Quintero MD (PCP) Patient Instructions Chest Pain - [facility], [facility] Additional Instructions Please return to the emergency department if you have worsening or recurrent symptoms not amenable to at-home treatment. Please call for a follow-up appointment with her primary care physician. Please take your medications as prescribed. If you have other concerns and/or complaints please feel free to also call your primary care physician's office or return the ED for further evaluation, management, and treatment. Please call your primary care physician for an appointment for Tuesday. Please return if you have any worsening symptoms. Please discuss with your primary care physician the utility of taking an aspirin and/or some other antiplatelet medication. Take your medications as prescribed. You have been examined and treated today on an emergency basis only. This is not a substitute for, or an effort to provide, complete comprehensive medical care. It is impossible to recognize and treat all injuries or illnesses in a single emergency department visit. It is therefore important that you follow up closely with [facility], your PCP, and/or your specialist(s). Call as soon as possible for an appointment. Thank you for your time and consideration. I look forward to speaking with you again soon. Please don't hesitate to call us if you have any questions. Problem Qualifiers
[2017-06-08 21:22] LABS: PTT PATIENT 26.8 SECONDS (21.0-31.0)
[2017-06-08] MEDS ORDERED: ERGO500037 PO (21:30)
[2017-06-08] MEDS ORDERED: MAGN200T6 PO (21:30)
[2017-06-08] MEDS ORDERED: CALC-51 PO (21:30)
[2017-06-08 21:43] LABS: ALBUMIN 3.8 gm/dl (3.4-5.0); ALKALINE PHOSPHATASE 64 U/L (45-117); ALT/SGPT 24 U/L (12-78); AST/SGOT 30 U/L (15-37); BLOOD UREA NITROGEN 16 mg/dl (7-18); CALCIUM 9.2 mg/dl (8.5-10.1); CARBON DIOXIDE 24 mmol/L (21-32); CREATININE 0.68 mg/dl (0.60-1.20); GLUCOSE 95 mg/dl (70-99); LIPASE 325 U/L (73-393); PHOSPHORUS 3.3 mg/dl (2.5-4.9); TOTAL PROTEIN 7.7 gm/dl (6.4-8.2)
[2017-06-08 21:48] LABS: POTASSIUM 4.3 mmol/L (3.5-5.1); SODIUM 138 mmol/L (136-145)
[2017-06-08 22:29] VITALS: BP 156/82; PULSE 75; O2SAT 98
== END 2017-06-08 22:51 | disposition home or self-care (01) ==
LOC: C.EDB 20:38
DX: I49.1 Atrial premature depolarization (principal); I49.8 Other specified cardiac arrhythmias; R00.2 Palpitations; Z87.891 Personal history of nicotine dependence; Z79.899 Other long term (current) drug therapy; Z88.6 Allergy status to analgesic agent; Z88.8 Allergy status to other drugs, medicaments and biological substances; Z82.49 Family history of ischemic heart disease and other diseases of the circulatory system

== ENCOUNTER → 2017-06-27 | Outpatient (CLI) | payer OTHER ==
[~2017-06-27] MED LIST changes: +CALC-51 PO; -CALC600T9 PO; +ERGO500037 PO; -FAMO20TA11 PO; +MAGN200T6 PO; -RXC5 PO; -SNK PO; -WARF2TAB PO
--- NOTE | 2017-06-27 15:03 | MAMMOGRAPHY REPORT ---
BILATERAL DIGITAL SCREENING MAMMOGRAM TOMOSYNTHESIS WITH CAD: 06/27/2017 CLINICAL HISTORY: Routine screening examination. TECHNIQUE: Breast tomosynthesis in addition to standard 2D mammography was performed. Current study was also evaluated with a Computer Aided Detection (CAD) system. COMPARISON: Comparison is made to exam dated: 04/01/2016 mammogram - [facility]. BREAST COMPOSITION: There are scattered areas of fibroglandular density in both breasts. FINDINGS: There is a 7 mm nodular asymmetry in the anterior right breast, adjacent to the nipple, on ly seen on the MLO view (tomosynthesis slice 19/61), for which additional spot compression tomosynthe sis views and possible ultrasound are recommended. No other suspicious mass, architectural distortion or cluster of microcalcifications is seen bilatera lly. IMPRESSION: ACR BI-RADS CATEGORY 0: INCOMPLETE EVALUATION: NEED ADDITIONAL IMAGING EVALUATION The 7 mm nodular asymmetry in the anterior right breast on the MLO view needs additional evaluation. The patient will be called to schedule an appointment. Approximately 10% of breast cancers are not detected with mammography. A negative mammographic report should not delay biopsy if a clinically suggestive mass is present. Renetta Davidson M.D. ay/:06/27/2017 13:24:21 Polystyrene Bead Molder: Shannan TURNER(Dagoberto)(M), [facility] letter sent: Addl Imaging 0 BI-RADS Code: ACR BI-RADS Category 0: Incomplete Evaluation: Need Additional Imaging Evaluation
== END | disposition home or self-care (01) ==
LOC: C.MAMM 11:04
PROVIDERS: ATTEND Family Medicine
DX: Z12.31 Encounter for screening mammogram for malignant neoplasm of breast (principal)

== ENCOUNTER → 2017-07-15 | Outpatient (CLI) | payer OTHER | END | disposition home or self-care (01) | LOC: C.LABPVFM 09:45 | PROVIDERS: ATTEND Internal Medicine Rheumatology | DX: M80.00XA Age-related osteoporosis with current pathological fracture, unspecified site, initial encounter for fracture (principal); E55.9 Vitamin D deficiency, unspecified; E61.8 Deficiency of other specified nutrient elements ==

== ENCOUNTER → 2017-07-29 | Outpatient (CLI) | payer OTHER | END | disposition home or self-care (01) | LOC: C.LABSPEC 17:14 | PROVIDERS: ATTEND Nurse Practitioner Family | DX: R39.9 Unspecified symptoms and signs involving the genitourinary system (principal) ==

== ENCOUNTER → 2017-08-05 | Outpatient (CLI) | payer OTHER ==
[2017-08-05 12:44] LABS: HEMOGLOBIN A1C 5.8 % (4.5-5.6)
== END | disposition home or self-care (01) ==
LOC: C.LABPVFM 08:17
PROVIDERS: ATTEND Family Medicine
DX: R73.9 Hyperglycemia, unspecified (principal)

== ENCOUNTER 2021-10-27 06:33 | Observation (INO) ==
--- NOTE | 2021-10-02 14:49 | PAT Medication Instructions ---
Medication Instructions Date of Service October 02, 2021 Home Medications Medication Instructions Recorded metoprolol succinate 25 mg 12.5 mg PO DAILY PRN #30 tab 08/07/21 tablet,extended release 24 hr lutein 6 mg tablet 6 mg PO DAILY cholecalciferol (vitamin D3) 50 mcg (2,000 unit) capsule 2,000 units PO QAM fexofenadine 180 mg tablet 180 mg PO DAILY PRN magnesium citrate 125 mg capsule 125 mg PO Q OTHER DAY vitamin B complex 1 tab PO Q2D metoprolol succinate 25 mg tablet,extended release 24 hr 12.5 mg PO DAILY PRN acetaminophen 500 mg capsule 500 mg PO Q6H PRN calcium carbonate 500 mg calcium (1,250 mg) tablet 1,000 mg PO DAILY -bty-chl-other oxtqn2l-zhfj oil 350 mg- 400 mg capsule 1 cap PO Q2D STOP taking 2 weeks before surgery (or as soon as possible if surgery is within 2 weeks) lutein 6 mg tablet 6 mg PO DAILY yxwdy8-fcm-qqe-other nzual9s-fncd oil 350 mg- 400 mg capsule 1 cap PO Q2D DO NOT take the morning of surgery cholecalciferol (vitamin D3) 50 mcg (2,000 unit) capsule 2,000 units PO QAM fexofenadine 180 mg tablet 180 mg PO DAILY PRN magnesium citrate 125 mg capsule 125 mg PO Q OTHER DAY vitamin B complex 1 tab PO Q2D calcium carbonate 500 mg calcium (1,250 mg) tablet 1,000 mg PO DAILY Take morning of surgery With a small sip of water, OTHERWISE NOTHING TO EAT OR DRINK AFTER MIDNIGHT: metoprolol succinate 25 mg tablet,extended release 24 hr 12.5 mg PO DAILY PRN (if needed) acetaminophen 500 mg capsule 500 mg PO Q6H PRN (okay to take up to 4 hours prior to surgery if needed) Take evening before surgery fexofenadine 180 mg tablet 180 mg PO DAILY PRN (if needed) metoprolol succinate 25 mg tablet,extended release 24 hr 12.5 mg PO DAILY PRN (if needed) acetaminophen 500 mg capsule 500 mg PO Q6H PRN (if needed) Other Notes If you have any questions please call us at [phone] or [phone] or [phone] or [phone]
--- NOTE | 2021-10-05 14:57 | Anesthesiology Consultation ---
Date of Service October 05, 2021 Assessment & Plan (1) Encounter for pre-operative examination: - COVID screening: Per assessment on 10/05/2021: Travel screen negative, no known COVID-19 positive contacts or current COVID-19 related symptoms in past 2 weeks. Surgeon arranging preop COVID testing, scheduled 10/23/2021. Awaiting results. She is planning to visit her daughter and immediate family in [place] over weekend-will be driving out and only visiting those few family members, states will not participate in any high risk activities and plans to return to the area 5 days before pre-op COVID test. Chart Review Chart Review: Acceptable Risk for Surgery and Patient seen in Pre Admission Testing Teaching & Discussion Pre-Anesthesia Teaching/Discussion Notes: Instructed NPO after midnight before surgery, except medications with 15 cc of water. Medication instructions provided according to the PAT guidelines. History Surgery Operation Date: 10/27/21 12:30 Proposed Procedures p Left Total Knee Replacement - Nhan Wall MD Height/Weight Height: 5 ft 6 in Weight: 73.7 kg Allergies Allergy/AdvReac Type Severity Reaction Status Date / Time aspirin Allergy Intermediate Hives Verified 10/02/21 15:41 naproxen Allergy Intermediate Hives Verified 10/02/21 15:41 Medications Home Medications Medication Instructions Recorded Confirmed Last Taken lutein 6 mg tablet 6 mg PO DAILY tab 12/01/18 10/02/21 10/04/19 cholecalciferol (vitamin D3) 50 2,000 units PO QAM cap 01/06/19 10/02/21 10/04/19 mcg (2,000 unit) capsule fexofenadine 180 mg tablet 180 mg PO DAILY PRN tab 01/06/19 10/02/21 Unknown magnesium citrate 125 mg capsule 125 mg PO Q OTHER DAY cap 01/06/19 10/02/21 10/03/19 milk thistle seed extract 1 tab PO DAILY 01/06/19 10/02/21 10/04/19 vitamin B complex 1 tab PO Q2D 10/04/19 10/02/21 10/03/19 metoprolol succinate 25 mg 12.5 mg PO DAILY PRN #30 tab 08/07/21 10/02/21 Unknown tablet,extended release 24 hr acetaminophen 500 mg capsule 500 mg PO Q6H PRN 10/02/21 10/02/21 Unknown calcium carbonate 500 mg calcium 1,000 mg PO DAILY 10/02/21 10/02/21 Unknown (1,250 mg) tablet isztn9-xkq-lfd-other jhiuq1s-cweg 1 cap PO Q2D 10/02/21 10/02/21 Unknown oil 350 mg- 400 mg capsule Past Medical History Medical History (Updated 10/05/21 @ 15:08 by Makenzie Ramos PA-C) Atrophic vaginitis H/O reduction of closed fracture Left shoulder History of COVID-19 Dx 05/2020 > "mild" symptoms > resolved Hx of gastroesophageal reflux (GERD) controlled, stable per pt Macular degeneration Left Osteopenia Pulmonary nodule "Benign" Symptomatic PVCs "Mild" > improved since stopping caffeine, metoprolol PRN Patient denies h/o stroke, seizures, heart attack, heart failure, DM, HTN, blood clots or blood transfusions. Exercise / Class Metabolic Activity II 4-5 Yardwork/Stairs/Walk up hill (denies CP or SOB with 1 FOS) Past Family History Family History Mother Anxiety Depression Gallbladder disease Father Cardiac disorder Myocardial infarction Hypertension Grandmother (Maternal) Breast cancer Daughter Thyroid disease Brother Lymphoma Other No family history of adverse response to anesthesia Denies family history of Ovarian cancer Prostate cancer Colorectal cancer Past Surgical History Surgical History History of colonoscopy History of dilation and curettage History of total knee replacement Right TKA (09/13/16): SAB at L3/4 (x1 attempt) + PNB at [facility]. No issues noted per post-op anesthesia progress note. Hx of appendectomy Hx of cataract surgery R/L Hx of tonsillectomy Boaz teeth removed Past Anesthesia History No Hx of Anesthesia Complications and No Family Hx of Anesthesia Complications History of PONV No Hx of Motion Sickness and History of PONV (with tonsillectomy under ether yrs ago) Social History Smoking Status: Former smoker tobacco type: cigarettes Do You Dip or Chew Tobacco: No Smoking End Date: ONLY WHILE IN COLLEGE 1968 Hx Alcohol Use: Yes Alcohol type: wine alcohol intake frequency: a few times a week Hx Substance Use: No substance use type: does not use Review of Systems Patient denies chest pain, shortness of breath, dyspnea on exertion, snoring, witnessed apneas, fever, chills, cough, or wheezing. Physical Exam Vital Signs Vitals BP 136/87 (She states is typically within normal range, is at times elevated in hospital settings) P 71 TEMP 98.8 SP02 97% on RA RESP 16 Physical Full cervical extension range of motion without pain TMD 3.5 finger breaths Mallampati Score 2 Dentition: intact, several caps-none in front; denies chipped or loose teeth Lungs: normal respiratory effort. Clear throughout to auscultation, no adventitious breath sounds Cardiac: regular rate and rhythm, no murmurs noted Carotid arteries: negative bruit bilat Lab Results Anesthesia Preop Results Results Anesthesia Widget: WBC 5.59 K/uL (4.8-10.8) 10/05/21 Hgb 12.3 g/dL (12.0-16.0) 10/05/21 Hct 36.9 % (37-47) L 10/05/21 Plt 249 K/uL (130-400) 10/05/21 Na 136 mmol/L (136-145) 10/05/21 K 4.1 mmol/L (3.5-5.1) 10/05/21 Cl 105 mmol/L (98-107) 10/05/21 CO2 26 mmol/L (21-32) 10/05/21 BUN 15 mg/dl (6-23) 10/05/21 Creat 0.68 mg/dl (0.6-1.2) 10/05/21 Glucose Level 126 mg/dl (70-99(Fasting)) H 10/05/21 PT 10.4 Seconds (9.0-12.0) 10/05/21 PTT 26.8 Seconds (21.0-31.0) 10/05/21 INR 1.0 (0.9-1.1) 10/05/21 Blood Type A Negative 10/05/21 Antibody Screen NEGATIVE 10/05/21 Testing Electrocardiogram Date: 10/05/21 NSR, rate 67 bpm Chest X-Ray Date: 10/05/21 No acute chest disease
[~2021-10-27 06:33] MED LIST changes: -ACET-1256 PO; +ACETAMINOPHEN 500 MG TAB PO SCH; -B-COTAB18 PO; +BUPIVACAINE LIPOSOME/PF 266 MG, BUPIVACAINE/EPINEPHRINE 50 ML, SODIUM CHLORIDE 0.9% 30 ... INFIL SCH; -CALC-51 PO; -COLL1CAP PO; -ERGO500037 PO; +FAMOTIDINE 20 MG TAB PO SCH; -FEXO1TAB58 PO; +GABAPENTIN 300 MG CAP PO SCH; -GLUCTAB7 PO; +LR 500ML BOLUS, THEN 15ML/HR IV SCH; +LR 60ML/HR IV SCH; -LUTE20CA PO; -MAGN200T6 PO; -MAGNSOL13 PO; +METOCLOPRAMIDE HCL 10 MG TABLET PO SCH; -MILK1CAP PO; -MULT-513 PO; -OMEG10007 PO; +ceFAZolin 2000MG 2,000 MG/15 ML SYR IV SCH
--- NOTE | 2021-10-27 06:55 | History & Physical Bridge Note ---
Date of Service October 27, 2021 History & Physical Bridge Note I have examined the patient, reviewed the History & Physical and in the interval since the performance of the History & Physical I have noted the following changes of clinical significance: no changes noted
[2021-10-27] MEDS ORDERED: BUPIVACAINE 0.5 % 5 MG/1 ML PF 10ML VIAL ONE (07:15)
[2021-10-27] MEDS ORDERED: ROPIVACAINE 0.5% 5 MG/ML 30 ML VIAL ONE (07:15)
[2021-10-27] MEDS ORDERED: MIDAZOLAM HCL 1 MG/ML 2ML VIAL ONE (07:36)
[2021-10-27] MEDS ORDERED: ONDANSETRON INJ 2 MG/ML 2 ML VIAL IV PRN ×2 (08:14→13:33)
[2021-10-27] MEDS ORDERED: ATROPINE SULFATE 0.1 MG/ML 10ML SYR IV PRN (08:14)
[2021-10-27] MEDS ORDERED: fentaNYL citrate 100 MCG/2 ML VIAL IV PRN (08:14)
[2021-10-27] MEDS ORDERED: ePHEDrine sulfate 50 MG/ML AMP IV PRN (08:14)
[2021-10-27] MEDS ORDERED: BUPIVACAINE LIPOSOME 1.3% 266 MG/20 ML VIAL ONE (09:00)
[2021-10-27] MEDS ORDERED: SODIUM CHLORIDE 0.9% PF 50 ML VIAL ONE (09:00)
[2021-10-27] MEDS ORDERED: BUPIVACAINE/EPINEPHRINE 0.25% 1:200,000 30 ML VIAL ONE (09:00)
[2021-10-27] MEDS ORDERED: PROPOFOL IV EMULSION 10 MG/ML 20 ML VIAL IV ONE ×2 (09:31→10:51)
[2021-10-27] MEDS ORDERED: LIDOCAINE 2% 2 ML VIAL/AMP(20MG/ML) INFIL ONE (10:01)
[2021-10-27] MEDS ORDERED: PHENYLEPHRINE 100MCG/ML 5ML SYR ONE (10:19)
--- NOTE | 2021-10-27 11:13 | Operative Report ---
PG Post Operative Report Pre & Post Diagnosis Operation Date: 10/27/21 08:50 Pre-Op Diagnosis: Left Knee Advanced Degenerative Joint Disease Post-Op Diagnosis: Left Knee Advanced Degenerative Joint Disease I identified the patient and participated in the time-out.: Yes Procedure Operation Date: 10/27/21 08:50 Actual Procedures p Left Total Knee Arthroplasty(Left) - Nhan Wall MD Surgeon Nhan Wall MD Processor Grain Mingo Gamboa PA-C Estimated Blood Loss 50 Findings Consistent with Post-Op Diagnosis Operative findings revealed advanced sclerotic grade 4 disease of the lateral compartment. She had some focal grade 4 changes medially and in the patellofemoral joint. She had a valgus deformity to her knee. Moderate-sized knee joint effusion. Some moderate diffuse osteopenia. Fluids 700 cc Specimens Left knee sent for pathology Anesthesia Type Spinal MAC Complications none Disposition Accompanied Patient To Recovery: No Indications Patient is a 75-year-old female whose had a long history of knee problems. She had a right knee replaced about 4 years ago. Over the past several years he developed increased pain discomfort in her left knee. She failed all conservative measures. She elected proceed with a total knee arthroplasty. Description of Procedure Operative implants consist of: 1 Biomet Vanguard size 65 left posterior stabilized femoral component. 2. Biomet size 67 tibial tray. 3. 12 mm posterior stabilized polyethylene insert. 4. 31 x 8 all Paller patella. The patient was taken the operating, identified, and placed on the operating table supine position protectors were properly padded. IV antibiotics tried by anesthesia team. A spinal anesthetic and abductor canal block had been applied in the holding area. Lake catheter was placed in sterile fashion. Left thigh tent was then placed in the left lower extremity then prepped draped in usual sterile fashion. The left leg was elevated exsanguinated with use of an Esmarch and the tourniquet was set at 300 mmHg. An anterior approach left knee was then performed to longitudinal incision centered over the patella. Sharp dissection was got through subcutaneous this down the extensor mechanism. A medial parapatellar arthrotomy incision was made. Some subperiosteal dissection was carried out medially. The fat pad was dissected from Neath patella tendon. The lateral patellofemoral ligament was released. Patella subluxated laterally and the knee was flexed. The osteophytes taken off distal femur. The ACL and PCL were then released from distal femur the tibia subluxated anteriorly. The external tibial alignment jig was then placed the interface of the tibia and adjusted 12 mm medially. Proximal tibial cut was made remove about 4 mm of bone from the medial side. The tibia was then sized to a size 67. Attention drawn to the femur. The distal femur examined the sharp drop with intramedullary canal was suction. A left 5 degree valgus cutting guide was placed. Distal femoral cutting block was pinned in place. Distal femoral cut was made to take an additional 3 mm bone off distal femur. The leg was then brought out into extension. I did release some of the IT band and a pie crusting fashion to equalize the extension gap. Great care was taken throughout the procedure protect the peroneal nerve at all times. The knee was flexed. The femur was then sized to a size 65. The AP cutting block was pinned parallel to the epicondylar axis which was 5 degrees of external rotation. The anterior cut, anterior chamfer, posterior cut, posterior chamfer cuts were made. The box cutting guide was placed in just slight lateral box cut was made. The knee was flexed. The remnants of the medial and lateral menisci were excised. The osteophytes were taken off the posterior aspect of femur. I did have to release the popliteus tendon in order to equalize the flexion gap. A trial femoral component was placed. The tibial tray was pinned in maximum external rotation and the drill and stem punch were used to create defect in proximal tibia for the tibial tray. Knee was then trialed and the 12 mm insert fit most appropriately. Attention drawn to the patella. The patella was cleaned of all soft tissues. Patella thickness measured 21 mm in thickness was cut down to 13. Was sized to a size 31 patella. The lug holes were drilled for the 31 patella. The lateral osteophyte was removed. The patella button was placed. Knee was taken through range of motion patella tracked nicely with no thumbs test. Attention drawn to placing permanent components. All trial components were removed. Bone plug was placed in the distal femur limit blood loss. Double batch Palacos G cement was mixed. A Biomet Vanguard size 65 left posterior stabilized femoral component, size 67 tibial tray, 12 mm posterior stabilized polyethylene insert, and a 31 x 8 all Paller patella then cemented in place. Knee was brought out into full extension total cement hardened. Final cement check was then performed. The pericapsular tissues were injected with total 100 cc of combination of 20 cc of Exparel, 30 cc of normal saline, 50 cc of quarter percent Marcaine with epinephrine. Patient did receive 1 g tranexamic acid. The tourniquet was then let down for final turn time of 54 minutes. Hemostasis reduced electrocautery. The extensor mechanism closed with combination 1 PDS suture #1 Vicryl suture in [id number] fashion. Extensor mechanism checked found to be intact with subcutaneous tissue then closed 2 Dexon suture in buried interrupted fashion skin was closed skin eusebia. Leg was then cleaned and dried a sterile dressing was Xeroform, 4 x 4's, sterile cast padding, Jourdan bandage were applied. Patient then transferred to the recovery room in stable condition. Patient tolerated the procedure well and there were no complications. Mingo Gamboa, my physician multimedia production assistant, was present for the entire procedure. His assistance was essential and required for appropriate patient positioning, prepping and draping, surgical exposure, performing the technical details of the operation, placement the implants, closure of the wound, and placement of the sterile bandage. I attest to the content of the Intraoperative Record and any orders documented therein. Any exceptions are noted below.
--- NOTE | 2021-10-27 11:55 | XRay Report ---
XR knee LT 1 or 2V routine CLINICAL HISTORY: Surgical Post Op TECHNIQUE: 2 views of the left knee were obtained. Comparison: None available at the time of this dictation. FINDINGS: Patient is status post total knee arthroplasty with expected postsurgical changes including soft tiss ue swelling, subcutaneous emphysema, and surgical staple placement. No periarticular lucency or hardw are fracture is seen. IMPRESSION: Expected postoperative appearance status post placement of total knee arthroplasty. ACT 112: Negative or not required by law. Electronically signed by: Mihir Hurt M.D. 10/27/2021 11:53 AM
[2021-10-27] MEDS ORDERED: HYDROmorphone INJ 0.5 MG/0.5 ML SYR IV PRN (13:33)
[2021-10-27] MEDS ORDERED: FEXOFENADINE HCL 180 MG TAB PO PRN (13:33)
[2021-10-27] MEDS ORDERED: NALOXONE HCL 0.4 MG/1 ML VIAL/CARP IV PRN (13:33)
[2021-10-27] MEDS ORDERED: METOCLOPRAMIDE HCL INJ 5 MG/ML 2 ML VIAL IV PRN (13:33)
[2021-10-27] MEDS ORDERED: ALUMINUM/MAGNESIUM SUSP 30 ML UDC PO PRN (13:33)
[2021-10-27] MEDS ORDERED: METOPROLOL SUCC 25MG EXT REL TAB PO PRN (13:33)
[2021-10-27] MEDS ORDERED: bisacodyL 10 MG SUPP PR PRN (13:33)
[2021-10-27] MEDS ORDERED: MAGNESIUM HYDROXIDE SUSP 30 ML UDC PO PRN (13:33)
--- NOTE | 2021-10-27 14:16 | Anesthesiology Progress Note ---
Date of Service October 27, 2021 Anesthesia Post Procedure Vital Signs Vital Signs: Temp Pulse Pulse Resp BP Pulse Ox 10/27/21 13:38 36.4 C L 57 L 16 131/83 100 10/27/21 13:15 51 L 16 113/74 96 10/27/21 13:00 50 L 16 124/73 97 10/27/21 12:45 48 L 16 123/68 98 10/27/21 12:30 52 L 16 112/68 98 10/27/21 12:15 53 L 16 104/65 96 10/27/21 12:05 36.2 C L 55 L 12 101/64 96 10/27/21 11:55 55 L 12 102/66 96 10/27/21 11:45 59 L 18 103/65 96 10/27/21 11:35 72 16 96/71 L 95 10/27/21 11:25 65 16 98/62 L 96 10/27/21 11:15 72 14 96/57 L 99 10/27/21 11:08 36.3 C L 65 16 81/45 L 100 10/27/21 07:05 36.7 C 71 18 150/89 H 97 Transfer of Care Handoff Completed per policy Notes Mental Status: alert / awake / arousable and participated in evaluation Patient Amnestic to Procedure: Yes Nausea / Vomiting: adequately controlled Pain: adequately controlled Airway Patency, RR, SpO2: stable & adequate BP & HR: stable & adequate Hydration State: stable & adequate Neuraxial Anesthesia: was administered and sensory block is resolving Anesthetic Complications: no major complications apparent and Pt Satisfied with anesthetic care
[2021-10-27] MEDS: KETOROLAC TROMETHAMINE 15 MG/ML VIAL IV SCH ×2 (14:43→19:58)
[2021-10-27] MEDS: SODIUM CHLORIDE 0.9% 1000ML 1,000 ML IV SCH ×2 (14:44→22:14)
[2021-10-27] MEDS: ACETAMINOPHEN 500 MG TAB PO SCH ×2 (14:44→22:14)
[2021-10-27] MEDS ORDERED: TRANEXAMIC ACID / 0.7% NACL 1,000 MG/100 ML BAG IV SCH (17:15)
[2021-10-27] MEDS: ceFAZolin 1000MG 1,000 MG/7.5 ML SYR IV SCH (18:02)
[2021-10-27] MEDS: ASCORBIC ACID 500 MG TAB PO SCH (18:03)
[2021-10-27] MEDS: oxyCODONE HCL IR 5 MG TAB (IMMEDIATE RELEASE) PO PRN (18:05)
[2021-10-27] MEDS: DOCUSATE SODIUM 100 MG CAP PO SCH (20:00)
[2021-10-27] MEDS ORDERED: SENNA 8.6 MG TAB PO SCH (21:00)
[2021-10-28] MEDS: ceFAZolin 1000MG 1,000 MG/7.5 ML SYR IV SCH (02:06)
[2021-10-28] MEDS: KETOROLAC TROMETHAMINE 15 MG/ML VIAL IV SCH ×2 (02:06→07:42)
[2021-10-28] MEDS: ACETAMINOPHEN 500 MG TAB PO SCH (05:41)
[2021-10-28 06:33] LABS: Hematocrit (blood only) 31.5 % (37-47); Hemoglobin 10.7 g/dL (12.0-16.0); Mean Corpuscular Hemoglobin 31.9 pg (25-34); Mean Platelet Volume 9.5 fL (7.4-10.4); Platelet Count 205 K/uL (130-400); RDW Coefficient of Variation 14.3 % (11.5-14.5); RDW Standard Deviation 49.7 fL (36.4-46.3); Red Blood Count 3.35 M/uL (4.2-5.4); White Blood Count 4.94 K/uL (4.8-10.8)
[2021-10-28 06:50] LABS: BUN Creatinine Ratio 21.9 (10-20); Calcium 7.9 mg/dl (8.5-10.1); Creatinine Clr Calc Pharmacy 65.6 ml/min; Est GFR (African American) 92.1 ml/min; Est GFR (Non-African American) 79.4 ml/min; Potassium 3.8 mmol/L (3.5-5.1)
[2021-10-28] MEDS: DOCUSATE SODIUM 100 MG CAP PO SCH (07:47)
[2021-10-28] MEDS: ASCORBIC ACID 500 MG TAB PO SCH (07:47)
[2021-10-28] MEDS ORDERED: dexAMETHasone 10 MG in SYRINGE 0 ML IV SCH (08:00)
[2021-10-28] MEDS ORDERED: VITAMIN B COMPLEX TAB PO SCH (09:00)
[2021-10-28] MEDS ORDERED: NON-FORMULARY MEDICATION (Lutein 6 mg tablet) PO SCH (09:00)
[2021-10-28] MEDS ORDERED: CALCIUM CARBONATE 1250MG TAB PO SCH (09:00)
[2021-10-28] MEDS ORDERED: DOCUSATE SODIUM/SENNA 50/8.6MG TAB PO SCH (09:00)
[2021-10-28] MEDS ORDERED: MILK THISTLE SEED EXTRACT PO SCH (09:00)
[2021-10-28] MEDS ORDERED: MULTIVITAMIN TAB PO SCH (09:00)
[2021-10-28] MEDS ORDERED: CHOLECALCIFEROL 1,000 UNITS 25 MCG TAB PO SCH (09:00)
[2021-10-28] MEDS ORDERED: RIVAROXABAN 10 MG TABLET PO SCH (11:00)
[2021-10-28] MEDS: oxyCODONE HCL IR 5 MG TAB (IMMEDIATE RELEASE) PO PRN (12:19)
--- NOTE | 2021-10-28 13:20 | Orthopedic Progress Note ---
Date of Service October 28, 2021 Assessment & Plan (1) Status post total left knee replacement: -Doing well on POD 1 -Continue current pain control regimen -DVT ppx w/ TEDs/SCDs, Xarelto 10 mg daily x 6 weeks (Aspirin allergy) -PT/OT consulted; WBAT LLE; TKR protocol Disposition: Hopefully d/c home with home health today pending PT/OT evaluation. Discussed w/ Dr. Wall Subjective Doing well today. Pain is controlled w/ current regimen. Ambulating with walker. VSS . Review of Systems All systems reviewed & are unremarkable except as noted in HPI & below. Physical Exam General: Pleasant 75 y/o/f resting in bed comfortably in NAD. AAO x 4. LLE: Dressing C/D/I. Mild incisional tenderness. Distally N/V/I. Results & Data Results & Data Laboratory Results Reviewed . Diagnostic Findings Reviewed - Post op Knee XRs with expected post operative findings and no hardware complications . PG Care Time/CCT Total # of Minutes Spent Total Time Spent with Patient: Total time spent is greater than 50% in coordination of care (as documented) at patient's floor/unit and/or counseling patient: Coding Level of Care Code 81072 Post Operative Follow-Up Diagnoses Status post total left knee replacement Z96.652
--- NOTE | 2021-10-28 14:22 | Progress Notes ---
DATE OF SERVICE: 10/28/2021. SUBJECTIVE: A 75-year-old white female now postop day 1 from a left knee replacement. She has had a good morning. Therapy went well. No chest pain or shortness of breath. Not feeling dizzy or light headed. She did have an episode about an hour or so ago where she felt just a little bit abnormal. She said she felt a little flutter in her heart. We got an EKG which was normal. This is ____. Den ies any chest pain or shortness of breath. OBJECTIVE: VITAL SIGNS: Temperature is 36.5. Vital signs are stable. GENERAL: Physical examination shows a pleasant, elderly female. She is sitting up in her bed and lo oks completely comfortable. LUNGS: Clear to auscultation. HEART: Regular rate and rhythm. ABDOMEN: Soft, nontender, nondistended. EXTREMITIES: Grossly neurovascularly intact except as follows: Examination of the left leg reveals the dressing to be clean, dry, and intact. She can do a straight leg raise. She can dorsiflex and p lantarflex her foot appropriately. She is neurologically intact. EKG: Normal. ASSESSMENT: A 75-year-old white female postoperative day 1 from a left knee replacement, doing prett y well. She did have a slight episode which certainly could have been a vasovagal-type episode. PLAN: 1. DVT prophylaxis to include thigh-high TEDs, SCDs, and she is on Xarelto for DVT prophylaxis due t o aspirin allergy. 2. PT, OT, weightbear as tolerated. Left total knee protocol. 3. Pain control, doing well with current pain regimen. 4. Disposition: Plan to discharge to home with her 's assistance later today if doing okay. Job ID: [id number]
[2021-10-29] MEDS ORDERED: OMEGA-3 (PURIFIED FISH OIL) 1 GM CAP PO SCH (09:00)
--- NOTE | 2021-10-29 22:59 | Electrocardiogram Report ---
Test Reason : Blood Pressure : / mmHG Vent. Rate : 072 BPM Atrial Rate : 072 BPM P-R Int : 168 ms QRS Dur : 088 ms QT Int : 410 ms P-R-T Axes : 039 -01 028 degrees QTc Int : 448 ms Normal sinus rhythm Normal ECG When compared with ECG of 05-OCT-2021 15:28, No significant change was found Confirmed by Bhanu Schwartz ([id number]) on 10/29/2021 10:59:09 PM Referred By: Nhan Wall Confirmed By:Bhanu Schwartz
== END 2021-10-28 15:09 | disposition home health service (06) ==
LOC: PACUINP 06:33 → ASU 06:33 → 3E 13:27